=== PATIENT | male | born 1975 | race Caucasian/White ===

== ENCOUNTER → 2024-06-12 08:19 | Outpatient (CLI) | payer OTHER, SELFPAY ==
--- NOTE | 2024-06-12 08:25 | DI.RAD.S_ITS ---
PROCEDURE: XR KNEE RT 3V INDICATIONS: KNEE PAIN TECHNIQUE: 3 views of the knee were acquired. COMPARISON: None. FINDINGS: Bones: No fractures or dislocations. No suspicious bony lesions. Soft tissues: Small joint effusion. No suspicious soft tissue calcifications. IMPRESSION: Small joint effusion. Otherwise, no acute fracture or dislocation. Dictated by: Frank Wagoner M.D. on 06/12/2024 at 11:11 Approved by: Frank Wagoner M.D. on 06/12/2024 at 11:11
== END ==
PROVIDERS: Referring Provider Chiropractor; Visit Provider Chiropractor
DX: M25.561 Pain in right knee (principal); M25.461 Effusion, right knee
CPT/HCPCS: 73562

== ENCOUNTER → 2024-09-03 08:15 | Outpatient (CLI) | payer OTHER, SELFPAY ==
--- NOTE | 2024-09-03 08:18 | DI.RAD.S_ITS ---
PROCEDURE: XR ANKLE RT 2V INDICATIONS: ANKEL PAIN TECHNIQUE: 3 views of the ankle were acquired. COMPARISON: None. FINDINGS: Bones: There is minimal irregularity of the anterior tibial plafond which may be stigmata of old trauma. No other osseous abnormality. Tibiotalar and talocalcaneal joints: Normal in width and alignment without arthritic change. Soft tissues: No soft tissue swelling, calcification or mass. IMPRESSION: Minor chronic finding that as described Dictated by: Zeeshan Rodriguez M.D. on 09/04/2024 at 11:21 Approved by: Zeeshan Rodriguez M.D. on 09/04/2024 at 11:22
== END ==
PROVIDERS: Referring Provider Chiropractor; Visit Provider Chiropractor
DX: M13.871 Other specified arthritis, right ankle and foot (principal)
CPT/HCPCS: 73600